=== PATIENT | male | born 1995 | race Caucasian/White ===

== ENCOUNTER 2018-02-11 23:07 | Emergency (ER) | payer MEDICAID, MEDICARE ==
[2018-02-11 23:08] VITALS: BMI 36.2
[2018-02-11 23:15] VITALS: BP 144/83; PULSE 75; RESP 20; TEMP 98.2; O2SAT 98
[2018-02-11] MEDS ORDERED: DiphenhydrAMINE 50 mg/ml Inj ONE (23:29)
[2018-02-11] MEDS ORDERED: DiphenhydrAMINE 50 mg/ml Inj IM STA (23:31)
--- NOTE | 2018-02-12 02:43 | C.PDOC ---
History Of Present Illness 22 year old male presents to the ED for evaluation of stiffness to his neck and jaw which began yesterday. Patient states symptoms developed after he was given an injection at [facility]. He is concerned that he may be having a reaction to the medication and presents to the ED for further evaluation. Pt does not know name of meds. Patient denies shortness of breath, throat swelling, chest tightness, or rash. Time Seen by Provider: 02/11/18 23:19 Chief Complaint (Nursing): Allergic Reaction History Per: Patient History/Exam Limitations: no limitations Onset/Duration Of Symptoms: Hrs Current Symptoms Are (Timing): Still Present Additional History Per: Patient Past Medical History Reviewed: Historical Data, Nursing Documentation, Vital Signs Vital Signs: Last Vital Signs Temp 98.2 F 02/11/18 23:09 Pulse 75 02/11/18 23:09 Resp 20 02/11/18 23:09 BP 144/83 02/11/18 23:09 Pulse Ox 98 02/12/18 02:46 - Medical History PMH: No Chronic Diseases Denies: Diabetes, Hepatitis, HIV, HTN, Seizures, Sexually Transmitted Disease Surgical History: No Surg Hx - [facility] Procedures INJECT/INFUSE NEC (05/27/14) PSYCHIA INTERV/EVAL NEC (05/27/14) Family History: States: Unknown Family Hx - Social History Hx Tobacco Use: No Hx Alcohol Use: No Hx Substance Use: No (nimco) - Immunization History Hx Tetanus Toxoid Vaccination: No Hx Influenza Vaccination: No Hx Pneumococcal Vaccination: No Review Of Systems ENT: Positive for: Other (jaw and neck stiffness ). Negative for: Throat Swelling Cardiovascular: Negative for: Other (chest tightness) Respiratory: Negative for: Shortness of Breath Skin: Negative for: Rash Physical Exam - Physical Exam Appears: Non-toxic, No Acute Distress Skin: Normal Color, Warm, Dry, No Rash Head: Atraumatic, Normacephalic, No Swelling (facial ), Other (patient is able to fully open mouth, no trismus ) Eye(s): bilateral: Normal Inspection Nose: Normal Oral Mucosa: Moist Tongue: Normal Appearing, No Swelling Lips: Normal Appearing, No Swelling Throat: Normal, No Erythema, No Exudate, No Drooling Neck: Normal ROM, Supple Chest: Symmetrical, No Deformity Cardiovascular: Rhythm Regular Respiratory: Normal Breath Sounds, Other (speaking in complete sentences ) Extremity: Normal ROM Neurological/Psych: Oriented x3, Normal Speech, Normal Cognition ED Course And Treatment O2 Sat by Pulse Oximetry: 98 (on RA) Pulse Ox Interpretation: Normal Progress Note: Pt is stable with no signs of acute allergy, no dystonic reaction. Benadryl IM given. On re-examination, patient is resting comfortably , showing no signs of respiratory distress, and reports an improvement in his symptoms. Patient eloped the ED prior to receiving discharge papers. Disposition Counseled Patient/Family Regarding: Diagnosis - Disposition Disposition: HOME/ ROUTINE Disposition Time: 23:27 Condition: STABLE Forms: [employer] (Liberian) - Clinical Impression Clinical Impression: Encounter for medical assessment - PA / ECHOCARDIOGRAPH TECH / Resident Statement MD/DO has reviewed & agrees with the documentation as recorded. - Scribe Statement The provider has reviewed the documentation as recorded by the Scribe (Sol Richards) All medical record entries made by the Scribe were at my direction and personally dictated by me. I have reviewed the chart and agree that the record accurately reflects my personal performance of the history, physical exam, medical decision making, and the department course for this patient. I have also personally directed, reviewed, and agree with the discharge instructions and disposition.
== END 2018-02-11 23:44 | disposition home or self-care (01) ==
LOC: C.ER 23:07
DX: Z00.00 Encounter for general adult medical examination without abnormal findings (principal)
CPT/HCPCS: 96372; 99283; J1200

== ENCOUNTER 2018-02-17 00:08 | Emergency (ER) | payer MEDICAID, MEDICARE ==
[2018-02-17 00:12] VITALS: BMI 36.2
[2018-02-17 00:16] VITALS: BP 133/73; PULSE 85; RESP 16; TEMP 98.1; O2SAT 99
--- NOTE | 2018-02-17 01:00 | C.PDOC ---
History Of Present Illness The patient presents to the ED requesting a place to sleep for the night. He denies alcohol/drug use, suicidal/homicidal ideation and has no complaints at this time. Time Seen by Provider: 02/17/18 00:59 Chief Complaint (Nursing): Medical Clearance History Per: Patient History/Exam Limitations: no limitations Onset/Duration Of Symptoms: Hrs Current Symptoms Are (Timing): Gone Severity: None Pain Scale Rating Of: 0 Recent travel outside of the [place]: No Additional History Per: Patient Past Medical History Reviewed: Historical Data, Nursing Documentation, Vital Signs Vital Signs: Last Vital Signs Temp 98.1 F 02/17/18 00:14 Pulse 85 02/17/18 00:14 Resp 16 02/17/18 00:14 BP 133/73 02/17/18 00:14 Pulse Ox 99 02/17/18 01:25 - Medical History PMH: No Chronic Diseases Denies: Diabetes, Hepatitis, HIV, HTN, Seizures, Sexually Transmitted Disease Surgical History: No Surg Hx - [facility] Procedures INJECT/INFUSE NEC (05/27/14) PSYCHIA INTERV/EVAL NEC (05/27/14) Family History: States: Unknown Family Hx - Social History Hx Tobacco Use: No Hx Alcohol Use: No Hx Substance Use: No (nimco) - Immunization History Hx Tetanus Toxoid Vaccination: No Hx Influenza Vaccination: No Hx Pneumococcal Vaccination: No Review Of Systems Constitutional: Negative for: Fever, Chills Cardiovascular: Negative for: Chest Pain, Palpitations Respiratory: Negative for: Cough, Shortness of Breath Gastrointestinal: Negative for: Nausea, Vomiting, Abdominal Pain Skin: Negative for: Rash, Lesions, Jaundice, Bruising Neurological: Negative for: Weakness, Numbness Psych: Negative for: Suicidal ideation Physical Exam - Physical Exam Appears: Non-toxic, No Acute Distress Skin: Warm, Dry, No Other (signs of trauma/injury) Head: Normacephalic Eye(s): bilateral: Normal Inspection Oral Mucosa: Moist Neck: Supple Chest: Symmetrical, No Deformity, No Tenderness Cardiovascular: Rhythm Regular Respiratory: No Accessory Muscle Use Extremity: Normal ROM Neurological/Psych: Oriented x3 ED Course And Treatment O2 Sat by Pulse Oximetry: 99 (on RA) Pulse Ox Interpretation: Normal Reevaluation Time: 05:19 Reassessment Condition: Improved Disposition Counseled Patient/Family Regarding: Studies Performed, Diagnosis, Need For Followup - Disposition Referrals: [facility] [Outside] Disposition: HOME/ ROUTINE Disposition Time: 01:00 Condition: FAIR Forms: [facility] (Turkmen), General Discharge Instructions - Clinical Impression Clinical Impression: Medical assessment - Scribe Statement The provider has reviewed the documentation as recorded by the Scribe (Sol Richards) Provider Attestation: All medical record entries made by the Scribe were at my direction and personally dictated by me. I have reviewed the chart and agree that the record accurately reflects my personal performance of the history, physical exam, medical decision making, and the department course for this patient. I have also personally directed, reviewed, and agree with the discharge instructions and disposition.
== END 2018-02-17 05:45 | disposition home or self-care (01) ==
LOC: C.ER 00:08
DX: Z00.00 Encounter for general adult medical examination without abnormal findings (principal)

== ENCOUNTER 2018-02-23 03:42 | Emergency (ER) | payer MEDICARE, MEDICAID ==
[2018-02-23 03:42] VITALS: BMI 32.5
[2018-02-23 03:50] VITALS: BP 128/64; PULSE 91; RESP 22; TEMP 97.8; O2SAT 98
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
--- NOTE | 2018-02-23 12:45 | RAD ---
PROCEDURE: Pelvis and bilateral hips HISTORY: Injury with right hip pain. Injury COMPARISON: None. FINDINGS: BONES: Normal. No fracture. JOINTS: Normal. SOFT TISSUES: Normal. OTHER FINDINGS: None. IMPRESSION: Normal radiographs of right hip.
== END 2018-02-23 05:05 | disposition home or self-care (01) ==
LOC: C.ER 03:42
DX: S70.11XA Contusion of right thigh, initial encounter (principal); V19.40XA Pedal cycle driver injured in collision with unspecified motor vehicles in traffic accident, initial encounter; Y93.55 Activity, bike riding

== ENCOUNTER 2018-04-16 21:57 | Inpatient (IN) | payer MEDICARE, MEDICAID ==
[2018-04-16 21:58] VITALS: BMI 30.8
[2018-04-16 22:09] VITALS: O2SAT 98
[2018-04-16 22:23] LABS: URINE BILIRUBIN NEGATIVE (NEGATIVE); URINE BLOOD NEGATIVE (NEGATIVE); URINE CLARITY Clear (Clear); URINE COLOR Yellow (YELLOW); URINE GLUCOSE (UA) NORMAL (Normal); URINE LEUKOCYTE ESTERASE NEG Leu/uL (Negative); URINE PROTEIN NEGATIVE (NEGATIVE); URINE UROBILINOGEN NORMAL mg/dL (0.2-1.0)
[2018-04-16 22:29] LABS: BASO # 0.1 K/uL (0.0-0.2); BASO % 0.9 % (0.0-2.0); EOS # 0.2 K/uL (0.0-0.7); EOS % 2.3 % (0.0-4.0); HEMOGLOBIN 14.1 g/dL (12.0-18.0); LYMPH # 2.7 K/uL (1.0-4.3); LYMPH % 33.7 % (20.0-40.0); MEAN CELL VOLUME 90.2 fL (80.0-94.0); MEAN CORPUSCULAR HEMOGLOBIN 30.8 pg (27.0-31.0); MEAN CORPUSCULAR HGB CONC 34.2 g/dL (33.0-37.0); MEAN PLATELET VOLUME 8.5 fL (7.2-11.7); MONO # 0.6 K/uL (0.0-0.8); MONO % 7.8 % (0.0-10.0); NEUT # 4.4 K/uL (1.8-7.0); NEUT % 55.3 % (50.0-75.0); NRBC % 0.1 % (0.0-2.0); RBC 4.57 Mil/uL (4.40-5.90); RED CELL DISTRIBUTION WIDTH 12.9 % (11.5-14.5)
[2018-04-16 22:35] LABS: BARBITURATES, UR NEGATIVE (NEGATIVE); BENZODIAZEPINES, UR NEGATIVE (NEGATIVE); OPIATES, UR NEGATIVE (NEGATIVE)
[2018-04-16 22:39] LABS: ALB/GLOB RATIO 1.9 (1.0-2.1); ALBUMIN 4.6 g/dL (3.5-5.0); ALT/SGPT 31 U/L (21-72); AST/SGOT 37 U/L (17-59); BLOOD UREA NITROGEN 15 mg/dL (9-20); CALCIUM 9.5 mg/dl (8.6-10.4); GFR NON-AFRICAN AMERICAN > 60
[2018-04-16 22:40] LABS: PHENCYCLIDINE, UR POSITIVE (NEGATIVE)
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
--- NOTE | 2018-04-17 03:43 | PCM.BM ---
<Ketih Calhoun - Last Filed: 04/17/18 04:03> Treatment Plan Problems - Problems identified on initial assessmt DEPRESSION Date Initiated: 04/17/18 Time Initiated: 03:20 Assessment reference: NA Status: Active SUBSTANCE ABUSE Date Initiated: 04/17/18 Time Initiated: 03:20 Assessment reference: NA Status: Active Comment: USING PCP. Treatment assets and liabiliti Patient Assests: cooperative, self-reliant, ADL independent, negotiates basic needs Patient Liabilities: live alone, physical pain, financial problems, poor support system, substance abuse - Milieu Protocol Maintain good personal hygiene: daily Encourage regular showers, daily Remind patient to perform daily oral care, daily Assist patient to perform ADL's Maintain personal safety: every shift Educate patient to report safety concerns to staff, every shift Monitor environment for contraband/sharps Medication safety: Monitor for expected outcome, potential side effects: every shift, Assess barriers to learning: every shift, Assess readiness for medication education: every shift <Rajani Blount - Last Filed: 04/17/18 11:32> - Diagnosis (1) Bipolar disorder, curr episode mixed, severe, with psychotic features Status: Acute Interventions: 04/17/18 11:33 * Assess/adjust medications daily and /or as needed * See patient on an individual basis 7x/week to assess level of manic behaviors and stability * Discuss risks, benefits, side effects and alternatives of medications * (2) PCP abuse Status: Acute Interventions: 04/17/18 11:33 * Assess 7x/week regarding severity of withdrawal * Educate regarding risks, benefits, side effects and alternatives of medications * Use Motivational Interviewing for abstinence * Use CBT for relapse prevention * Medication management for withdrawal symptoms * Encourage medication assisted treatment * <Riya Chan - Last Filed: 04/17/18 16:53> Treatment Plan Problems - Problems identified on initial assessmt DEPRESSION Date Initiated: 04/17/18 Time Initiated: 03:20 Assessment reference: NA Status: Active SUBSTANCE ABUSE Date Initiated: 04/17/18 Time Initiated: 03:20 Assessment reference: NA Status: Active Comment: USING PCP. AUDITORY HALLUCINATION Date Initiated: 04/17/18 Time Initiated: 03:20 Assessment reference: NA Status: Active Family Contact Family involvement: Patient does not wish Family/SO involvement Family contact: Patient declines to allow family contact at present - Goals for Treatment Patient goals for treatment: "I want to go to an outpatient program." Discharge/Continuing Care - Education Needs Education Needs: Patient Medication, Patient Diagnosis/Disease Process, Patient Coping Skills, Patient Placement options, Patient Community resources - Discharge Discharge Criteria: Free of Suicidal thoughts, Normal sleep pattern, Ability to care for self, No longer exhibiting s/s of withdrawal, Reduction of target symptoms Discharge to:: [facility] - Treatment Team Participation Discussed with Family/SO: No Was Patient/Family/SO present at Treatment Team Meeting: Yes
--- NOTE | 2018-04-17 10:19 | PCM.PSYCH ---
Initial Psychiatric Evaluation - Initial Psychiatric Evaluation Type of Admission: Voluntary Legal Status: Capacity Chief Complaint (in patient's own words): I relapsed on PCP.' History of Present Illness and Precipitating Events: This is a 22 years old Yor[place] decent self-referred male came to the ED, depressed mood, PCP abuse and suicidal ideation. Patient appeared somewhat mentally challenged. Reports history of more than 1 inpatient psychiatric hospitalizations at [facility] He denies any history of follow-up with any psychiatrist. He reports that this past few weeks he is abusing increasing amount PCP. Yesterday his girlfriend threw him out, he became increasingly depressed and suicidal and wanted to jump in front of the car. But he came to the hospital to get help. He reports irritability, agitation, poor sleep and poor appetite. He also reports sometimes paranoia and auditory hallucinations noncommand type, when he abuses PCP. Patient reports past history of being diagnosed with ADHD, bipolar disorder, schizophrenia, depressive disorder. However he denies any past history of any suicidal ideation or attempt. Currently he denies any auditory or visual hallucinations or any paranoia. Reports anxiety and irritability but denies any panic attacks. Denies any other substance abuse. Past medical history None reported Current Medications: Active Medications Generic Name Dose Route Start Last Admin Trade Name Freq PRN Reason Stop Dose Admin Hydroxyzine HCl 50 mg 04/17/18 03:54 04/17/18 04:08 Atarax PO 50 mg Q6 PRN Administration Anxiety Influenza Virus Vaccine 60 mcg 04/19/18 10:00 Fluzone Quad [id number] IM 04/19/18 10:01 .ONCE ONE Pneumococcal Polyvalent Vaccine 0.5 ml 04/19/18 10:30 Pneumovax 23 Vaccine IM 04/19/18 10:31 .ONCE ONE Past Psychiatric History - Past Psychiatric History Previous Treatment History: Inpatient Pertinent Medical Hx (Current Medical&Sleep Prob, Allergies): Allergies Allergy/AdvReac Type Severity Reaction Status Date / Time No Known Allergies Allergy Verified 04/16/18 22:06 Ibuprofen [Motrin Tab] 400 mg PO Q6 PRN #20 tab 04/06/18 Review of Systems - Review of Systems All systems: reviewed and no additional remarkable complaints except - Psychiatric Psychiatric: Anxiety, Irritability, Suicidal Ideation Mental Status Examination - Personal Presentation Personal Presentation: Looks stated age - Affect Affect: Broad - Motor Activity Motor Activity: Psychomotor Agitation - Reliability in Providing Information Reliability in Providing Information: Poor, due to altered mood - Speech Speech: Organized - Mood Mood: Anxious - Formal Thought Process Formal Thought Process: Paranoia - Hallucinations/Delusions Delusions: Persecution - Obsessions/Compulsions Obsessions: No Compulsions: No - Cognitive Functions Orientation: Person, Place, Situation, Time Sensorium: Alert Attention/Concentration: Attentive Abstract Thinking: Bridgman Estimate of Intelligence: Below average Judgement: Imparied, as evidence by: Poor judgement, Imparied, as evidence by: Lack of insight into illness - Risk Risk: Suicidal, Diminished functioning - Limitations Limitations: Living alone DSM 5 DX - DSM 5 DSM 5 Diagnosis: Bipolar disorder with psychotic features Rule out PCP induced psychotic disorder - Recommended/Plan of Treatment Treatment Recommendations and Plan of Treatment: CBT Psychoeducation Supportive therapy Hydroxyzine 25 mg by mouth every 6 hours when necessary Trazodone 50 mg by mouth every 6 hours when necessary Depakote 250 mg by mouth twice a day
[2018-04-18 06:34] VITALS: BP 125/74; PULSE 73; RESP 18; TEMP 97.5
--- NOTE | 2018-04-18 12:37 | PCM.PYCHDC ---
Mental Status Examination - Mental Status Examination Orientation: Person, Place, Situation, Time Memory: Intact Mood: Neutral Affect: Constricted Speech: Soft Attention: WNL Concentration: WNL Association: WNL Fund of Knowledge: WNL Formal Thought Process: No Impairment Description of patient's judgement and insight: partially impaired Psychotic Thoughts and Behaviors: denies any AVH Suicidal Ideation: No Current Homicidal Ideation?: No Discharge Summary - Discharge Note Reason for Hospitalization: This is a 22 years old [place] decent self-referred male came to the ED, depressed mood, PCP abuse and suicidal ideation. Patient appeared somewhat mentally challenged. Reports history of more than 1 inpatient psychiatric hospitalizations at [facility]. He denies any history of follow-up with any psychiatrist. He reports that this past few weeks he is abusing increasing amount PCP. Yesterday his girlfriend threw him out, he became increasingly depressed and suicidal and wanted to jump in front of the car. But he came to the hospital to get help. He reports irritability, agitation, poor sleep and poor appetite. He also reports sometimes paranoia and auditory hallucinations noncommand type, when he abuses PCP. Patient reports past history of being diagnosed with ADHD, bipolar disorder, schizophrenia, depressive disorder. However he denies any past history of any suicidal ideation or attempt. Currently he denies any auditory or visual hallucinations or any paranoia. Reports anxiety and irritability but denies any panic attacks. Denies any other substance abuse. Consultations:: List each consultation separately and include: 1. Reason for request. 2. Findings. 3. Follow-up Summary of Hospital Course include:: 1. Description of specific treatment plan utilized for patients during their course of treatmen. 2. Summarize the time-course for resolution of acute symptoms and/or regressed behaviors. 3. Describe issues identified and worked on during hospitalization. 4. Describe medication utilized. 5. Describe medical problems identified and treated. 6. Reassessment of suicide risk Summary of Hospital Course: During the course of his stay, patient (pt) started progressively improving, but today he became very irritable and agitated. He demanded to get discharged AMA. He started a verbal altercation with the staff. However he denied any suicidal ideation or homicidal ideation and denied any auditory or visual hallucinations. - Diagnosis (1) Bipolar disorder, curr episode mixed, severe, with psychotic features Current Visit: Yes Status: Acute (2) PCP abuse Current Visit: Yes Status: Acute - Final Diagnosis (DSM 5) Condition upon Discharge: FAIR DSM 5: Bipolar disorder with psychotic features Rule out PCP induced psychotic disorder Disposition: AGAINST MEDICAL ADVICE Follow-up Treatment Plan: Education: Pt was educated and counseled about the risks of drinking and abusing drugs. Pt was educated and counseled to go to the ER or call 911 if pt develop suicidal ideation or homicidal ideation, worsening of symptoms or severe side effects of the meds. - Smoking Cessation Smoking Cessation Medication prescribed: No - Antipsychotic Medications Pt discharged on 2 or more routine antipsychotic medications: No
[2018-04-19] MEDS ORDERED: Influenza Vaccine 60 MCG/0.5 ML SYR (3 yr & up) IM ONE (10:00)
[2018-04-19] MEDS ORDERED: Pneumococcal 23-Valent Vaccine IM ONE (10:30)
== END 2018-04-18 13:34 | disposition left against medical advice (07) | DRG 885 ==
LOC: SUPCPDRO 21:57 → C.ER 21:57 → C.5E 04-17 02:43
PROC: GZ3ZZZZ Medication Management (ICD-10-PCS; principal; 2018-04-17)
PROC: GZHZZZZ Group Psychotherapy (ICD-10-PCS; 2018-04-17)
PROC: GZ56ZZZ Individual Psychotherapy, Supportive (ICD-10-PCS; 2018-04-17)
DX: F31.64 Bipolar disorder, current episode mixed, severe, with psychotic features (principal); R45.851 Suicidal ideations; F16.10 Hallucinogen abuse, uncomplicated; F79 Unspecified intellectual disabilities